=== PATIENT | female | born 1960 | race Caucasian/White ===

== ENCOUNTER 2017-10-31 08:27 | Emergency (ER) | payer BC ==
[2017-10-31] MEDS: KETOROLAC 15 MG INJ IV (08:56)
[2017-10-31] MEDS: METOCLOPRAMIDE 10 MG INJ IV (08:56)
[2017-10-31] MEDS: DIPHENHYDRAMINE 50 MG INJ IV (08:56)
[2017-10-31] MEDS: SOD CHLORIDE 0.9% 1,000 ML IV (08:59)
== END 2017-10-31 10:25 | disposition home or self-care (01) ==
LOC: FTE 08:27
DX: R51 Headache (principal)
CPT/HCPCS: 96374; 96375; 99284-25